=== PATIENT | male | born 1970 | race African-American/Black ===

== ENCOUNTER → 2024-02-15 | Day surgery (SDC) | payer OTHER ==
[~2024-02-15] MED LIST: LACTATED RINGER'S 1,000 ML ONE; PROPOFOL IV EMULSION 10 MG/ML 20 ML VIAL ONE
[2024-02-15 13:11] VITALS: TEMP 97.5
[2024-02-15 13:40] VITALS: BP 119/91; PULSE 62; RESP 16; O2SAT 97
== END | disposition home or self-care (01) ==
LOC: OR 10:26
PROVIDERS: ATTEND Internal Medicine Gastroenterology
DX: Z12.11 Encounter for screening for malignant neoplasm of colon (principal); D12.2 Benign neoplasm of ascending colon; K63.89 Other specified diseases of intestine; K62.5 Hemorrhage of anus and rectum; K57.30 Diverticulosis of large intestine without perforation or abscess without bleeding; K64.8 Other hemorrhoids; R05.9 Cough, unspecified; Z01.810 Encounter for preprocedural cardiovascular examination
CPT/HCPCS: 45378; 45384; 93005